=== PATIENT | female | born 1990 | race Caucasian/White ===

== ENCOUNTER 2023-03-13 16:13 | Inpatient (IN) | payer BC ==
[~2023-03-13] VITALS: Ht 163.8 cm; Wt 85.9 kg
[~2023-03-13 16:13] MED LIST: DEPO-PROVER150 MG/M1 IM
[2023-03-14] MEDS ORDERED: NS 1,000 ML IV SCH (08:45)
[2023-03-15] MEDS ORDERED: LR & Oxytocin 500 ML IV SCH ×2 (06:15)
[2023-03-15] MEDS ORDERED: LR 1,000 ML IV SCH (06:15)
[2023-03-16] VITALS (32 sets, daily range): BP systolic 110–140; BP diastolic 60–88; PULSE 82–112; TEMP 98.7
[2023-03-16] MEDS ORDERED: LR & Oxytocin 500 ML IV SCH ×2 (06:15)
[2023-03-16] MEDS ORDERED: LR 1,000 ML IV SCH (06:15)
--- NOTE | 2023-03-16 14:45 | NUR ---
PT AMBULATORY TO ROOM WITH SPOUSE, PT CHANGED INTO GOWN AND HOOKED UP TO EFM AND TOCO MONITORS. PT ORIENTED TO ROOM AND PLAN OF CARE, DENIES FEELING CTX, REPORTS POSITIVE MOVEMENT, DENIES LOF, DENIES VAGINAL BLEEDING/SPOTTING. FHR BASELINE 140'S, 2 ACCELS IN FIRST 10MIN, NO DECELS, CTX Q 9-11 MIN. SVE PER THIS RN /-3. NOTIFIED OF PT ADMISSION FOR INDUCTION
[2023-03-16] MEDS ORDERED: PRENATAL TABLET PO (15:04)
[2023-03-16] MEDS ORDERED: GLUCOPHAGE850 MG/TAB PO (15:05)
[2023-03-16 16:02] LABS: BASO % 0.1 % (0.0-2.0); EOS % 0.4 % (0.0-4.0); GRAN # 4.8 K/mm3 (1.4-6.5); GRAN % 64.5 % (42.2-75.2); HEMOGLOBIN 12.6 g/dl (12.5-16.0); LYMPH # 1.8 K/mm3 (1.2-3.4); LYMPH % 24.2 % (20.0-51.0); MEAN CELL VOLUME 89 fl (80.0-100.0); MEAN CORPUSCULAR HEMOGLOBIN 31 pg (27-31); MEAN CORPUSCULAR HGB CONC 35 g/dl (33.0-37.0); MEAN PLATELET VOLUME 10.3 fl (7.4-10.4); MONO # 0.8 K/mm3 (0.1-0.6); MONO % 10.1 % (1.7-9.3); PLATELET COUNT 203 K/mm3 (130-400); RED BLOOD COUNT 4.05 M/mm3 (4.10-5.30); REDCELL DISTRIBUTION WIDTH-CV 14.1 % (11.5-14.5)
[2023-03-16 16:03] LABS: HEMATOCRIT 36.2 % (37.0-47.0)
[2023-03-16 16:18] LABS: ALBUMIN 2.8 gm/dL (3.5-5.0); BILIRUBIN,TOTAL 0.4 mg/dL (0.2-1.2); CALCIUM 8.7 mg/dL (8.4-10.2); CREATININE, serum 0.62 mg/dL (0.57-1.11); POTASSIUM 3.8 mmol/L (3.5-4.5)
--- NOTE | 2023-03-16 16:30 | NUR ---
UNABLE TO TRACE TOCO DUE TO MATERNAL POSITION AND HABITUS, THIS RN WENT TO ROOM TO ADJUST MONITOR TO TRACE ACCURATE CTX
--- NOTE | 2023-03-16 17:15 | NUR ---
PT AMBULATE TO BATHROOM, EFM AND TOCO DISCONNECTED, UNABLE TO TRACE CTX
[2023-03-17] VITALS (66 sets, daily range): BP systolic 80–176; BP diastolic 47–88; PULSE 75–111; TEMP 97.7–100
[2023-03-17] MEDS ORDERED: Ondansetron 4 MG/2 ML VIAL IV PRN ×2 (01:30→13:45)
[2023-03-17] MEDS ORDERED: diphenhydrAMINE 25 MG CAP PO PRN (01:30)
[2023-03-17] MEDS ORDERED: Naloxone 0.4 MG/ML VIAL IV PRN ×2 (01:30→13:45)
[2023-03-17] MEDS ORDERED: diphenhydrAMINE 50 MG/ML 1 ML VIAL IV PRN (01:30)
[2023-03-17] MEDS ORDERED: ePHEDrine 50 MG/10 ML VIAL IV PRN (01:30)
[2023-03-17] MEDS ORDERED: ROPivacaine PF 0.2% 200 ML IV ONE (01:40)
--- NOTE | 2023-03-17 01:40 | NUR ---
0125- PATIENT SITTING ON EDGE OF BED. DIFFICULTY TRACING HEART TONES DUE TO MATERNAL POSITIONING. PULSE OX APPLIED. 0126- YANIQUE SUGAR PRESSER AT BEDSIDE. EXPLAINS PROCEDURE AND RISKS OF EPIDURAL. 0132- SINGLE SHOT ADMINISTERED BY YANIQUE SUGAR PRESSER. 0140- PATIENT REPOSITONED IN SEMIFOWLERS. PLAN OF CARE EXPLAINED TO PATIENT AND SPOUSE. QUESTIONS INVITED AND ANSWERED.
--- NOTE | 2023-03-17 09:50 | NUR ---
0950 FHR BASELINE 170'S, NOTIFIED OF TACHYCARDIA. PT POSITION CHANGED TO LLS RL AND FLUIDS INCREASED. 1020 AT BEDSIDE, SVE . FHR TACHY BASELINE 180'S, ACCELS PROLONGED 200'S, ORDER STOP PITOCIN. 1040 ANCEF 2G ADMINISTERED PER ORDER, PT BP AND HR STABLE BUT TEMP 100.0 DEGREES F. 1058 FLAGYL AND GENTAMYCIN ADMINISTERED PER ORDER 1113 PITOCIN STARTED AT 2 PER ORDER 1120 TYLENOL 1000MG ADMINISTERED PER ORDER. 1148 SVE PER . DETERMINED FAILURE TO PROGRESS, PT AGREES TO . 1200 PT TRANSFERED TO OR VIA BED WITH SPOUSE SUPPORTIVE AT BEDSIDE.
--- NOTE | 2023-03-17 10:00 | NUR ---
[id number] UNABLE TO MEASURE ACCURATE BLOOD PRESSURE DUE TO MATERNAL HABITUS, PT SHAKING UNABLE TO TRACE. THIS RN OBSERVES PT ALERT AND ORIENTED X3.
--- NOTE | 2023-03-17 10:30 | NUR ---
[id number] UNABLE TO TRACE TOCO DUE TO MATERNAL POSITION AND HABITUS. PT REPORTS FEELING "LESS TIGHT" WITH CTX, THIS RN ADJUSTS TOCO TO TRACE CTX AGAIN.
[2023-03-17] MEDS ORDERED: metroNIDAZOLE 100 ML IV ONE (10:45)
[2023-03-17] MEDS ORDERED: ceFAZolin 2 G in Water For Injection,Sterile 20 ML IV ONE (10:45)
[2023-03-17] MEDS ORDERED: Gentamicin/Sodium Chloride 100 ML IV ONE (10:45)
[2023-03-17] MEDS ORDERED: Ondansetron 4 MG/2 ML VIAL IV ONE (11:00)
--- NOTE | 2023-03-17 11:00 | NUR ---
UNABLE TO TRACE CTX DUE TO MATERNAL POSITION AND HABITUS, PT VS STABLE, THIS RN AT BEDSIDE ADJUSTING TOCO TO TRACE CTX.
[2023-03-17] MEDS ORDERED: Acetaminophen 500 MG TAB PO ONE (11:30)
[2023-03-17] MEDS ORDERED: Chloroprocaine PF 3% (30 MG/ML) 20 ML VIAL ONE (11:55)
[2023-03-17] MEDS ORDERED: Ondansetron 4 MG/2 ML VIAL ONE (12:01)
[2023-03-17] MEDS ORDERED: Oxytocin 10 UNITS/ML VIAL ONE (12:01)
[2023-03-17] MEDS ORDERED: Ketorolac 30 MG/ML VIAL ONE (12:01)
[2023-03-17] MEDS ORDERED: dexAMETHasone 10 MG/ML VIAL ONE (12:01)
[2023-03-17] MEDS ORDERED: EPINEPHrine 1 MG/1 ML Ampule ONE (12:04)
[2023-03-17] MEDS ORDERED: fentaNYL 50 MCG/ML 2 ML VIAL ONE (12:19)
[2023-03-17] MEDS ORDERED: Tranexamic Acid 1,000 MG/10 ML VIAL ONE (12:20)
[2023-03-17] MEDS ORDERED: Loratadine 10 MG TAB PO PRN (13:00)
[2023-03-17] MEDS ORDERED: Magnes Hydrox (MOM) 80 MG/ML 30 ML CUP PO PRN (13:00)
--- NOTE | 2023-03-17 13:35 | NUR ---
PT DID NOT HAVE ANY LOCHIA ON PAD AFTER C/S. FUNDUS FIRM AT UMBILICUS, THIS RN CONTINUES TO MONITOR CLOSELY FOR BLEEDING
[2023-03-17] MEDS ORDERED: oxyCODONE 5 MG TAB PO PRN (13:45)
[2023-03-17] MEDS ORDERED: Acetaminophen 500 MG TAB PO SCH (13:45)
[2023-03-17] MEDS ORDERED: Measles/Mumps/Rubella Virus Vaccine Live w Diluent 0.5 ML VIAL SQ SCH (13:45)
[2023-03-17] MEDS ORDERED: LR 1,000 ML IV PRN (13:45)
[2023-03-17] MEDS ORDERED: Morphine 4 MG/ML VIAL IV PRN (13:45)
[2023-03-17] MEDS ORDERED: Sennosides/Docusate 8.6-50 MG TAB PO SCH (17:00)
--- NOTE | 2023-03-17 18:30 | NUR ---
Report recieved at this time. Per off going nurse, patient and family are moving patient's beloning from room 221 to 215 per patient request. Following report, patient is resting in room while sitting on the bench. Whiteboard is updated and POC reviewed. Ordered medications reviewed at this time; patient verbalized understanding. Medications administered per MAR. Patient moved to bed where she is resting, lights dimmed.
[2023-03-17] MEDS ORDERED: Ibuprofen 600 MG TAB PO SCH (18:55)
[2023-03-17] MEDS ORDERED: Gentamicin/Sodium Chloride 50 ML IV SCH (19:00)
[2023-03-17] MEDS ORDERED: ceFAZolin 1 G in Water For Injection,Sterile 10 ML IV SCH (19:00)
[2023-03-17] MEDS ORDERED: traZODone 50 MG TAB PO PRN (21:00)
[2023-03-17] MEDS ORDERED: metroNIDAZOLE 100 ML IV SCH (23:00)
[2023-03-18 03:15] VITALS: BP 92/44; PULSE 80
[2023-03-18 07:10] VITALS: BP 98/57; PULSE 90; TEMP 97.5
[2023-03-18 07:38] LABS: HEMOGLOBIN 11.1 g/dl (12.5-16.0)
[2023-03-18 07:39] LABS: HEMATOCRIT 32.3 % (37.0-47.0)
[2023-03-18] MEDS ORDERED: IBU600 MG PO (08:57)
[2023-03-18] MEDS ORDERED: ROXICODONE 55 MG/TAB PO (08:58)
[2023-03-18] MEDS ORDERED: TYLENOL 500MG500 MG PO (08:58)
[2023-03-18] MEDS ORDERED: GLUCOPHAGE XR500 M1 PO (08:59)
[2023-03-18] MEDS ORDERED: Prenatal Vitamins/Iron/FA TAB PO SCH (09:00)
[2023-03-18] MEDS ORDERED: Rho(D) Imm Globulin 1,500 UNITS (300 MCG)/2 ML SYRINGE IV\\IM SCH (09:45)
--- NOTE | 2023-03-18 10:02 | NUR ---
Initial vist; Parents thanked Recenterer for offering congratulations and God's blessings for the of their son. Recenterer thanked family for choosing [facility].
--- NOTE | 2023-03-18 18:30 | NUR ---
Report recieved. Patient sitting in rocking chair in the nursery at this time. Introduced self. Patient states she is doing "fine" and declines needs or questions at this time.
--- NOTE | 2023-03-18 19:00 | NUR ---
Patient informed that would be transported to a higher acuity of care. Patient informed that Dr. Lewis has verbalized that she would like the patient to stay through the night due to her infection and then be seen by Dr. Helms in the morning. Patient is tearful and trembling. Patient states she is wanting to discharge to be with her . Patient states she felt like Dr. Helms had planned to let her discharge this evening if something were to happen with her infant. This nurse agreed to call Dr. Helms to review the situation; patient states that if he wanted her to stay the night she would "take it under advisement." Patient continues to state that she will be will her infant. Physician notified and discharge order recieved.
[2023-03-18 19:20] VITALS: BP 140/85; PULSE 105; TEMP 97.5
[2023-03-18 20:00] VITALS: BP 121/71; PULSE 105
--- NOTE | 2023-03-18 21:30 | NUR ---
Reviewed discharge education materials. Verbalized understanding to call to schedule a 2 week appointment tomorrow. Reviewed discharge medications; verbalized understanding to restart Metformin. Encouraged to drink water and be sure to eat a well balanced diet and to elevate her feet through the night when able; verbalized understanding. 2717 - Walked to vehicle with SOFIE López.
== END 2023-03-18 21:53 | disposition home or self-care (01) | DRG 786 ==
LOC: OB 03-15 08:06 → LDR 03-16 14:35 → OB 03-17 18:00
PROVIDERS: ADMIT Obstetrics & Gynecology
PROC: 10D00Z1 Extraction of Products of Conception, Low, Open Approach (ICD-10-PCS; principal; 2023-03-17)
DX: O24.425 Gestational diabetes mellitus in childbirth, controlled by oral hypoglycemic drugs (principal); O41.1230 Chorioamnionitis, third trimester, not applicable or unspecified; O72.1 Other immediate postpartum hemorrhage; O99.344 Other mental disorders complicating childbirth; Z3A.39 39 weeks gestation of pregnancy; Z37.0 Single live birth; F90.9 Attention-deficit hyperactivity disorder, unspecified type; O99.284 Endocrine, nutritional and metabolic diseases complicating childbirth; E28.2 Polycystic ovarian syndrome; O76 Abnormality in fetal heart rate and rhythm complicating labor and delivery; O26.893 Other specified pregnancy related conditions, third trimester; O35.8XX0 Maternal care for other (suspected) fetal abnormality and damage, not applicable or unspecified; Z67.11 Type A blood, Rh negative
CPT/HCPCS: J0171; J0665; J0690; J1100; J1580; J1836; J1885; J2401; J2405; J2590; J2791; J2795; J3010; J7120